=== PATIENT | female | born 2000 | race Caucasian/White ===

== ENCOUNTER 2019-10-08 22:57 | Inpatient (IN) ==
[2019-10-08] MEDS ORDERED: ONDANSETRON 4 MG/2 ML VIAL IV PRN (23:07)
[2019-10-08 23:32] LABS: Basophils % 0.2 % (0.0-0.8); Eosinophils # 0.1 10*3/uL (0.0-0.87); Eosinophils % 0.5 % (0.00-10.9); Hematocrit 30.7 VOL% (35.7-47.0); Hemoglobin 9.8 GM/DL (12.0-16.0); Immature Granulocytes % 0.5 %; Immature Granulocytes Absolute 0.07 #; Lymphocytes # 1.6 10*3/uL (1.4-4.0); Lymphocytes % 12.1 % (21.3-54.2); Mean Corpuscular HGB Conc 31.9 GM/DL (32-36); Mean Corpuscular Volume 84.6 FL (87-102); Mean Platelet Volume 11.6 FL (9.6-12.0); Monocytes % 6.4 % (1.7-12.7); Neutrophils % 80.3 % (38.7-73.9); Platelet Count 225 T/CUMM (130-400); Red Blood Count 3.63 MC/CUMM (3.8-5.5); Red Cell Distribution Width 14.1 % (9.3-17.3); White Blood Count 12.8 T/CUMM (4-12)
[2019-10-08 23:50] LABS: Albumin 2.8 G/DL (3.4-5.0); Bilirubin,Total 0.8 MG/DL (0.2-1.0); Calcium 8.3 MG/DL (8.5-10.1); Osmolality,Calculated 273.7 MOS/KG (273-304); Total Protein 6.9 G/DL (6.4-8.3)
[2019-10-09] MEDS: BUTORPHANOL 2 MG/ML VIAL IV PRN ×2 (01:54→04:58)
[2019-10-09] MEDS: LACTATED RINGERS 1,000 ML IV SCH ×2 (04:56→11:06)
[2019-10-09] MEDS ORDERED: ePHEDrine 50 MG/ML VIAL IV PRN (06:10)
[2019-10-09] MEDS ORDERED: FAMOTIDINE 20 MG/2 ML VIAL IV ONE (06:10)
[2019-10-09] MEDS ORDERED: NALOXONE 0.4 MG/ML VIAL IV PRN (06:10)
[2019-10-09] MEDS ORDERED: LACTATED RINGERS 1,000 ML IV ONE (06:10)
[2019-10-09] MEDS ORDERED: CITRIC ACID/SODIUM CITRATE 30 ML UDCUP PO ONE (06:10)
[2019-10-09] MEDS ORDERED: LACTATED RINGERS 1,000 ML IV SCH (06:30)
[2019-10-09] MEDS ORDERED: fentaNYL 2 MCG/ROPIV 0.2% EPID 100 ML EPIDURAL SCH (06:30)
[2019-10-09 07:20] LABS: Apearance,Urine CLEAR (Clear); Bacteria,Urine Occasional /HPF (Few); Bilirubin,Urine Negative (Negative); Blood, Urine Negative (Negative); Glucose,Urine (UA) Negative (Negative); Ketones,Urine Negative (Negative); Mucus,Urine Occasional /LPF (Occasional); Nitrite,Urine Negative (Negative); Protein,Urine Negative; Squamous Epithelial Cell,Urine Occasional /HPF (0-10); Urine Color Yellow (Yellow); Urine Specific Gravity 1.005 (1.001-1.035); Urine Urobilinogen < 2.0 EU/DL (0.2-1.0); WBC,Urine <1 /HPF (0-6)
[2019-10-09] MEDS ORDERED: OXYTOCIN/LR 20 UNIT/1,000 ML BAG IV SCH ×2 (07:30→08:00)
[2019-10-09] MEDS ORDERED: TERBUTALINE 1 MG/1 ML VIAL SUBCUT ONE (10:50)
[2019-10-09] MEDS ORDERED: TRANEXAMIC ACID 1,000 MG/10 ML VIAL ONE (16:17)
[2019-10-09] MEDS ORDERED: miSOPROStoL 200 MCG TABLET ONE (16:17)
[2019-10-09] MEDS ORDERED: METHYLERGONOVINE 0.2 MG/1 ML AMP ONE (16:18)
[2019-10-09] MEDS ORDERED: CARBOPROST TROMETHAMINE 250 MCG/ML AMP IM ONE (16:18)
[2019-10-09] MEDS ORDERED: OXYTOCIN/LR 20 UNIT/1,000 ML BAG IV ONE ×2 (16:18→16:59)
[2019-10-09] MEDS ORDERED: LIDOCAINE 1% 50 ML VIAL ONE (16:19)
[2019-10-09] MEDS ORDERED: MEPERIDINE 50 MG/1 ML VIAL ONE (16:19)
[2019-10-09] MEDS ORDERED: LANOLIN 50% CREAM 0.3 OZ TUBE TOP PRN (16:59)
[2019-10-09] MEDS ORDERED: BISACODYL 10 MG SUPP RECTAL PRN (16:59)
[2019-10-09] MEDS ORDERED: ACETAMINOPHEN 325 MG TABLET PO PRN (16:59)
[2019-10-09] MEDS ORDERED: ONDANSETRON 4 MG/2 ML VIAL IV PRN (16:59)
[2019-10-09] MEDS ORDERED: WITCH HAZEL PADS 100/JAR TOP PRN (16:59)
[2019-10-09] MEDS ORDERED: RHO(D) IMMUNE GLOBULIN 300 MCG SYRINGE IM ONE (16:59)
[2019-10-09] MEDS ORDERED: MEASLES/MUMPS/RUBELLA VACCINE 0.5 ML VIAL SUBCUT ONE (16:59)
[2019-10-09] MEDS ORDERED: DIPH/TET/ACEL PERT BOOSTER VACCINE 0.5 ML VIAL IM ONE (16:59)
[2019-10-09] MEDS ORDERED: HYDROCORTISONE 2.5% RECTAL CREAM 30 GM TUBE TOP PRN (16:59)
[2019-10-09 17:09] LABS: Cord Arterial Blood HCO3 18.8 MMOL/L
[2019-10-09 17:12] LABS: Cord Venous Blood HCO3 21.4 MMOL/L; Cord Venous Blood PCO2 55.1 MMHG; Cord Venous Blood PO2 21.2 MMHG
[2019-10-09] MEDS: IBUPROFEN 800 MG TABLET PO PRN (19:20)
[2019-10-09] MEDS: DOCUSATE SODIUM 100 MG CAPSULE PO SCH (21:39)
[2019-10-09] MEDS: BENZOCAINE 20%/MENTHOL 0.5% SPRAY 56 GM CAN TOP PRN (21:40)
[2019-10-10] MEDS: oxyCODONE/ACETAMINOPHEN 5-325 MG TABLET PO PRN ×2 (00:04→12:59)
[2019-10-10] MEDS: IBUPROFEN 800 MG TABLET PO PRN ×2 (01:01→20:48)
[2019-10-10 06:25] LABS: Basophils % 0.1 % (0.0-0.8); Eosinophils # 0.1 10*3/uL (0.0-0.87); Eosinophils % 0.5 % (0.00-10.9); Hematocrit 25.5 VOL% (35.7-47.0); Immature Granulocytes % 0.5 %; Immature Granulocytes Absolute 0.07 #; Lymphocytes # 1.3 10*3/uL (1.4-4.0); Lymphocytes % 9.5 % (21.3-54.2); Mean Corpuscular HGB Conc 31.4 GM/DL (32-36); Mean Corpuscular Volume 85.3 FL (87-102); Mean Platelet Volume 11.4 FL (9.6-12.0); Monocytes % 6.8 % (1.7-12.7); Neutrophils % 82.6 % (38.7-73.9); Platelet Count 157 T/CUMM (130-400); Red Blood Count 2.99 MC/CUMM (3.8-5.5); Red Cell Distribution Width 14.2 % (9.3-17.3); White Blood Count 13.2 T/CUMM (4-12)
[2019-10-10] MEDS: DOCUSATE SODIUM 100 MG CAPSULE PO SCH ×2 (09:00→20:48)
[2019-10-10] MEDS ORDERED: RHO(D) IMMUNE GLOBULIN 300 MCG SYRINGE IM ONE (11:00)
[2019-10-10] MEDS: BENZOCAINE 20%/MENTHOL 0.5% SPRAY 56 GM CAN TOP PRN (14:49)
[2019-10-11] MEDS: oxyCODONE/ACETAMINOPHEN 5-325 MG TABLET PO PRN ×2 (05:10→15:14)
[2019-10-11 07:26] VITALS: BP 136/79
[2019-10-11] MEDS: DOCUSATE SODIUM 100 MG CAPSULE PO SCH (10:18)
== END 2019-10-11 17:00 | disposition home or self-care (01) | DRG 560 ==
LOC: N.LDOUT 22:57 → N.LD 22:59 → N.OB 10-09 21:00
PROVIDERS: ADMIT Specialist; ATTEND Specialist